=== PATIENT | male | born 1950 | race Caucasian/White ===

== ENCOUNTER 2018-12-30 16:03 | Inpatient (IN) ==
[2018-12-30] MEDS ORDERED: 0.9 % Sodium Chloride 1,000 ML IVC ONE (16:25)
--- NOTE | 2018-12-30 16:28 | Emergency Department Note ---
Disposition Clinical Impression: Urinary tract infection Qualifiers: Urinary tract infection type: site unspecified Hematuria presence: with hematuria Qualified Code(s): N39.0 - Urinary tract infection, site not specified; R31.9 - Hematuria, unspecified Disposition: Admitted As Inpatient Condition: Fair Referrals: NONE,PCP [Non-Partnered Physician] - Forms: ED Satisfaction Letter Time of Disposition: 20:11 General Adult HPI - General Chief complaint: ED Urogenital-Male Stated complaint: sob and blood in urine Time Seen by Provider: 12/30/18 16:14 Source: patient, family Mode of arrival: private vehicle Limitations: no limitations Nursing Notes Reviewed: Yes Vital Signs Reviewed: Yes - History of Present Illness HPI Narrative: Patient presents with a complaint of feeling chills and shaking on and off over the past 4 days. This is been associated with generalized weakness making it difficult for him to get up and ambulate. He also complains of myalgias. He is noticed blood in his urine for the past 4 days as well. Pt Subjective Complaint: Chills and weakness Onset (ago): hour(s) (4 days) Location: other (Generalized) Pain Severity: severe Pain Scale: 10 Associated symptoms: Reports: fever/chills, weakness, other (Myalgias) Treatments Prior to Arrival: none - Related Data Home Medications Medication Instructions Recorded Confirmed Albuterol Sulfate [Albuterol 2 puff IH Q4HR 12/30/18 12/30/18 Inhaler] Aspirin [Adult Aspirin] 81 mg PO DAILY 12/30/18 12/30/18 Atorvastatin Calcium [Lipitor] 20 mg PO DAILY 12/30/18 12/30/18 Atorvastatin [Lipitor] 80 mg PO HS 12/30/18 12/30/18 Diphenoxylate/Atropine [Lomotil 1 each PO QID 12/30/18 12/30/18 2.5 mg/0.025 mg] Famotidine [Heartburn Prevention] 20 mg PO BID 12/30/18 12/30/18 Morphine Sulfate [Arymo ER] 15 mg PO BID 12/30/18 12/30/18 Morphine Sulfate [Arymo ER] 15 mg PO BID 12/30/18 12/30/18 OxyCODONE/APAP 10/325 [Percocet 1 each PO 5XD 12/30/18 12/30/18 10/325 MG] Oxycodone HCl/Acetaminophen 1 each PO 5XD 12/30/18 12/30/18 [Percocet 10-325 mg Tablet] Pregabalin [Lyrica] 75 mg PO TID 12/30/18 12/30/18 hydrOXYzine HCl [Hydroxyzine HCl] 50 mg PO TID 12/30/18 12/30/18 hydroCHLOROthiazide 12.5 mg PO DAILY 12/30/18 12/30/18 [Hydrochlorothiazide] Allergies Allergy/AdvReac Type Severity Reaction Status Date / Time No Known Allergies Allergy Verified 04/02/15 12:10 All systems ED: reviewed and negative except as stated. Constitutional: Reports: fever, chills, weakness ENT ED: Denies: ear pain, throat pain, congestion Cardiovascular: Denies: chest pain, palpitations Respiratory: Denies: cough, dyspnea, wheezes Gastrointestinal: Reports: nausea. Denies: abdominal pain, diarrhea Musculoskeletal: Denies: back pain Integumentary: Denies: rash Neurological: Reports: weakness (Generalized). Denies: headache Past Medical History - Past Medical History Attestation: Yes The following information was validated with the patient. Source: patient, old records reviewed, nursing notes reviewed Medical history: Reports: COPD, coronary artery disease, GERD, hyperlipidemia, hypertension Surgical history: Reports: angioplasty/stent Psychiatric history: Reports: anxiety, depression - Social History Smoking Status: Current every day smoker Smokeless Tobacco Status: No Alcohol use: Reports: none Drug use: Reports: none Physical Exam - General Limitations: no limitations General appearance: alert, in no apparent distress - Head Head exam: atraumatic, normocephalic, normal inspection - Eye Eye exam: Present: normal appearance, PERRL, EOMI. Absent: scleral icterus, conjunctival injection - ENT ENT exam: normal exam, normal oropharynx, mucous membranes moist, normal external ear exam - Neck Neck exam: Present: normal inspection, full ROM, trachea midline. Absent: tenderness, meningismus - Chest Chest inspection: Present: normal inspection, symmetric chest wall rise. Absent: tenderness - Respiratory Respiratory exam: Present: normal lung sounds bilaterally. Absent: respiratory distress, wheezes - Cardiovascular Cardiovascular exam: Present: regular rate, normal rhythm, normal heart sounds - Abdominal Exam Abdominal exam: Present: soft, Non-Tender, normal bowel sounds - Extremities Exam Extremities exam: Present: normal inspection. Absent: pedal edema - Neurological Exam Neurological exam: Present: alert, oriented X3 - Psychiatric Psychiatric exam: Present: normal affect, normal mood - Skin Skin exam: Present: warm, dry. Absent: rash Course Course Narrative: Patient presents with what sounds like fevers and chills over the past few days associated with weakness and myalgias. He has had some hematuria and some urinary symptoms. I am concerned for urinary tract infection. Going. Disposition will be based on diagnostic results and reevaluation. - Reevaluation(s) Reevaluation #1: Urinalysis positive for infection. However the patient is afebrile. Normal white count. No elevation of lactic acid. No signs of sepsis. He did have a small elevation of troponin which is barely above the normal limit. However his story is that of urinary tract infection. I will repeat a troponin at the 3 hour elizabeth. In the meantime we will give him Rocephin IV. Disposition will be based on the repeat troponin and reevaluation. Time: 17:28 Reevaluation #2: Review troponin was negative. Patient will be admitted to the hospitalist service Time: 20:08 - Consultations Consultation #1: Dr. Kapadia, hospitalist - I discussed case with the hospice. He accepted the patient for admission. Pending the repeat troponin. Time: 18:20 Vital Signs Temperature 99.4 F 12/30/18 16:05 Pulse Rate 96 12/30/18 16:05 Respiratory Rate 18 12/30/18 16:05 Blood Pressure 169/63 12/30/18 16:05 O2 Sat by Pulse Oximetry 97 12/30/18 16:05 Temperature 99.4 F 12/30/18 16:05 Pulse Rate 94 12/30/18 20:03 Respiratory Rate 18 12/30/18 20:03 Blood Pressure 129/47 12/30/18 20:03 O2 Sat by Pulse Oximetry 97 12/30/18 20:03 Oxygen Delivery Oxygen Delivery Room Air Medical Decision Making - Medical Records Medical records reviewed: Yes I reviewed the patient's medical records. - Lab Data Lab results reviewed: Yes I reviewed the patient's lab results. Result diagrams: 12/30/18 16:38 12/30/18 16:38 Lab Results 12/30/18 12/30/18 12/30/18 Range/Units 16:25 16:38 16:38 WBC 6.6 (4.3-11.1) K/mcL RBC 4.01 L (4.19-5.50) M/mcL Hgb 12.5 L (12.9-16.9) g/dL Hct 35.0 L (37.5-50.1) % MCV 87.3 (83.0-100.0) fL MCH 31.2 (28.0-33.3) pg MCHC 35.7 H (31.6-35.5) g/dL RDW 12.6 (11.5-14.5) % Plt Count 72 L (140-400) K/mcL MPV 11.7 (9.4-12.4) fL Immature Gran % 0.3 (0-4) % Seg Neutrophils % 79.5 % Lymphocytes % 8.1 % Monocytes % 11.9 % Eosinophils % 0.0 % Basophils % 0.2 % Neutrophils # 5.2 (1.6-8.9) K/mcL Lymphocytes # 0.5 L (0.6-4.6) K/mcL Monocytes # 0.8 (0.0-1.3) K/mcL Eosinophils # 0.0 (0.0-0.6) K/mcL Basophils # 0.0 (0.0-0.2) K/mcL Sodium 130 L (136-145) mEq/L Potassium 3.6 (3.5-5.1) mEq/L Chloride 99 (98-107) mEq/L Carbon Dioxide 21 L (23-29) mEq/L BUN 33 H (8-23) mg/dL Creatinine 1.41 H (0.70-1.30) mg/dL Est GFR ( Amer) > 60 (> 60) Est GFR (Non-Af Amer) 50 L (> 60) BUN/Creatinine Ratio 23 (6-26) Glucose 204 H (70-105) mg/dL Calculated Osmolality 283 (280-300) Lactic Acid (0.5-2.2) mmol/L Calcium 8.2 L (8.6-10.3) mg/dL Total Bilirubin 1.0 (0.3-1.0) mg/dL Direct Bilirubin 0.3 H (0.0-0.2) mg/dL Indirect Bilirubin 0.7 (0.0-1.2) mg/dL AST 37 (13-39) Units/L ALT 28 (7-52) Units/L Alkaline Phosphatase 50 (34-104) Units/L Troponin I (< 0.04) ng/mL Serum Total Protein 7.1 (6.4-8.9) g/dL Albumin 3.6 (3.5-5.7) g/dL Globulin 3.5 (2.4-3.5) g/dL Albumin/Globulin Ratio 1.0 L (1.1-2.2) Urine Color Yellow (Yellow) Urine Clarity Cloudy A (Clear) Urine pH 5.5 (5.0-8.0) pH Units Ur Specific [place] 1.020 (1.010-1.025) Urine Protein >=300 H (Neg-Trace) mg/dL Urine Glucose (UA) Normal (Normal) mg/dL Urine Ketones Negative (Negative) mg/dL Urine Blood Large H (Negative) Urine Nitrite Negative (Negative) Urine Bilirubin Small H (Negative) Urine Urobilinogen Normal (Normal) mg/dL Ur Leukocyte Esterase Moderate H (Negative) Urine Microscopic RBC 15-30 H (0-3) per hpf Urine Microscopic WBC TNTC H (0-3) per hpf Ur Squamous Epith Cells Few (None-Few) per lpf Urine Bacteria Many H (None-Few) per hpf Urine Mucus Moderate H (Few) Ur Culture Indicated? YES A (NO) 12/30/18 12/30/18 12/30/18 Range/Units 16:38 16:38 19:22 WBC (4.3-11.1) K/mcL RBC (4.19-5.50) M/mcL Hgb (12.9-16.9) g/dL Hct (37.5-50.1) % MCV (83.0-100.0) fL MCH (28.0-33.3) pg MCHC (31.6-35.5) g/dL RDW (11.5-14.5) % Plt Count (140-400) K/mcL MPV (9.4-12.4) fL Immature Gran % (0-4) % Seg Neutrophils % % Lymphocytes % % Monocytes % % Eosinophils % % Basophils % % Neutrophils # (1.6-8.9) K/mcL Lymphocytes # (0.6-4.6) K/mcL Monocytes # (0.0-1.3) K/mcL Eosinophils # (0.0-0.6) K/mcL Basophils # (0.0-0.2) K/mcL Sodium (136-145) mEq/L Potassium (3.5-5.1) mEq/L Chloride (98-107) mEq/L Carbon Dioxide (23-29) mEq/L BUN (8-23) mg/dL Creatinine (0.70-1.30) mg/dL Est GFR ( Amer) (> 60) Est GFR (Non-Af Amer) (> 60) BUN/Creatinine Ratio (6-26) Glucose (70-105) mg/dL Calculated Osmolality (280-300) Lactic Acid 1.4 (0.5-2.2) mmol/L Calcium (8.6-10.3) mg/dL Total Bilirubin (0.3-1.0) mg/dL Direct Bilirubin (0.0-0.2) mg/dL Indirect Bilirubin (0.0-1.2) mg/dL AST (13-39) Units/L ALT (7-52) Units/L Alkaline Phosphatase (34-104) Units/L Troponin I 0.04 H* 0.03 (< 0.04) ng/mL Serum Total Protein (6.4-8.9) g/dL Albumin (3.5-5.7) g/dL Globulin (2.4-3.5) g/dL Albumin/Globulin Ratio (1.1-2.2) Urine Color (Yellow) Urine Clarity (Clear) Urine pH (5.0-8.0) pH Units Ur Specific [place] (1.010-1.025) Urine Protein (Neg-Trace) mg/dL Urine Glucose (UA) (Normal) mg/dL Urine Ketones (Negative) mg/dL Urine Blood (Negative) Urine Nitrite (Negative) Urine Bilirubin (Negative) Urine Urobilinogen (Normal) mg/dL Ur Leukocyte Esterase (Negative) Urine Microscopic RBC (0-3) per hpf Urine Microscopic WBC (0-3) per hpf Ur Squamous Epith Cells (None-Few) per lpf Urine Bacteria (None-Few) per hpf Urine Mucus (Few) Ur Culture Indicated? (NO) - Radiology Data Radiology results reviewed: Yes I reviewed the patient's radiology results. - EKG Data EKG #1 EKG attestation: Yes I reviewed and interpreted this EKG. EKG results narrative: Twelve-lead EKG performed at 1640 2 PM. Ordered, reviewed and interpreted by ED physician shows sinus rhythm at a rate of 100. There is an intraventricular conduction defect it seems consistent with a left bundle branch block. No obv ious acute ischemic changes. Intervals are otherwise within normal limits.
[2018-12-30 16:43] LABS: Bilirubin,Urine Small (Negative); Blood,Urine Large (Negative); Clarity,Urine Cloudy (Clear); Color,Urine Yellow (Yellow); Glucose,Urine (UA) Normal (Normal); Ketones,Urine Negative (Negative); Leukocyte Esterase,Urine Moderate (Negative); Nitrite,Urine Negative (Negative); PH,Urine 5.5 pH Units (5.0-8.0); Protein,Urine >=300 mg/dL (Neg-Trace); Urobilinogen,Urine Normal (Normal)
[2018-12-30 16:46] LABS: Basophils % 0.2 %; Hemoglobin 12.5 g/dL (12.9-16.9); Immature Granulocytes % 0.3 % (0-4); Lymphocytes # 0.5 K/mcL (0.6-4.6); Lymphocytes % 8.1 %; Mean Corpuscular HGB Conc 35.7 g/dL (31.6-35.5); Mean Corpuscular Hemoglobin 31.2 pg (28.0-33.3); Mean Corpuscular Volume 87.3 fL (83.0-100.0); Mean Platelet Volume 11.7 fL (9.4-12.4); Monocytes # 0.8 K/mcL (0.0-1.3); Monocytes % 11.9 %; Neutrophils # 5.2 K/mcL (1.6-8.9); Red Blood Count 4.01 M/mcL (4.19-5.50); Red Cell Distribution Width 12.6 % (11.5-14.5); Segmented Neutrophils % 79.5 %; White Blood Count 6.6 K/mcL (4.3-11.1)
[2018-12-30 16:50] LABS: Bacteria,Urine Many per hpf (None-Few); Mucus,Urine Moderate (Few); RBC,Urine 15-30 per hpf (0-3); Squamous Epithelial Cell,Urine Few per lpf (None-Few); WBC,Urine TNTC per hpf (0-3)
[2018-12-30 16:52] LABS: Platelet Count 72 K/mcL (140-400)
[2018-12-30 17:09] LABS: Alanine Aminotransferase 28 Units/L (7-52); Albumin 3.6 g/dL (3.5-5.7); Alkaline Phosphatase 50 Units/L (34-104); Aspartate Amino Transferase 37 Units/L (13-39); BUN/Creatinine Ratio 23 (6-26); Bilirubin,Direct 0.3 mg/dL (0.0-0.2); Bilirubin,Indirect 0.7 mg/dL (0.0-1.2); Blood Urea Nitrogen 33 mg/dL (8-23); Calcium 8.2 mg/dL (8.6-10.3); Carbon Dioxide 21 mEq/L (23-29); Chloride 99 mEq/L (98-107); Globulin 3.5 g/dL (2.4-3.5); Glucose 204 mg/dL (70-105); Osmolality,Calculated 283 (280-300); Potassium 3.6 mEq/L (3.5-5.1); Sodium 130 mEq/L (136-145); Total Protein 7.1 g/dL (6.4-8.9); eGFR For African Americans > 60 (> 60); eGFR For Non-African Americans 50 (> 60)
[2018-12-30] MEDS ORDERED: Naloxone 0.4 MG/ML INJ IVP PRN (20:52)
[2018-12-30] MEDS: Morphine Sulfate ER (12 HR) 15 MG TABLET.ER PO SCH (21:21)
[2018-12-30] MEDS: 0.9 % Sodium Chloride 1,000 ML IVC SCH (21:22)
[2018-12-30] MEDS: Pregabalin 75 MG CAPSULE PO SCH (21:22)
[2018-12-30] MEDS: Famotidine 20 MG TABLET PO SCH (21:23)
[2018-12-30] MEDS ORDERED: Acetaminophen 325 MG TABLET PO PRN (23:02)
[2018-12-30] MEDS ORDERED: levoFLOXacin 750 MG/150 ML 750 MG/150 ML BAG IVPB ONE (23:03)
[2018-12-31] MEDS: Famotidine 20 MG TABLET PO SCH ×4 (05:59→16:20)
[2018-12-31] MEDS: *HR* OxyCODONE/APAP 10/325 TABLET PO PRN ×2 (06:47→14:39)
[2018-12-31] MEDS ORDERED: hydroCHLOROthiazide 25 MG TABLET PO SCH (09:00)
[2018-12-31] MEDS ORDERED: cefTRIAXone 1,000 MG in 0.9 % Sodium Chloride Mini Bag 100 ML IVPB SCH (09:00)
--- NOTE | 2018-12-31 09:15 | Internal Med History&Physical ---
Date of Encounter: 12/31/18 Time of Encounter: 08:45 Assessment and Plan (1) Urinary tract infection Current visit: Yes Status: Acute He was started on Rocephin in emergency room. This will be continued with IV Levaquin added pending urine culture report. Lactobacillus will be given. Qualifiers: Urinary tract infection type: site unspecified Hematuria presence: with hematuria Qualified Code(s): N39.0 - Urinary tract infection, site not specified; R31.9 - Hematuria, unspecified (2) Acute renal insufficiency Current visit: Yes Status: Acute IV fluids will be given and HCTZ will be held. (3) Anemia Current visit: Yes Status: Acute Anemia testing will be done. Qualifiers: Anemia type: unspecified type Qualified Code(s): D64.9 - Anemia, unspecified (4) ASHD (arteriosclerotic heart disease) Current visit: Yes Status: Acute Continue aspirin 81 mg daily. (5) Anxiety Current visit: Yes Status: Acute Continue hydroxyzine (6) RLS (restless legs syndrome) Current visit: Yes Status: Acute Iron profile will be checked. Continue home medications. (7) Thrombocytopenia Current visit: Yes Status: Acute Present on labs from August 2014. Continue to monitor. Internal Medicine - H&P: HPI Chief complaint: UTI, acute renal failure Admitted From: Emergency Dept Plans for Post Hospital Care: Home History of present illness: Mr. Rashid is a 68 year old male who came to emergency room complaining of 4 day history of fevers chills and small volume polyuria. He was found to have acute renal insufficiency and evidence of UTI. He was admitted to [facility] floor for ongoing care needs. He denies previous UTIs. He denies known chronic kidney disease. He denies any other disorders of his kidneys bladder or prostate. Past Med Surg Social Fam HX - Past Medical History Medical history: COPD, coronary artery disease, GERD, hyperlipidemia, hypertension Additional medical history: cervical stenosis. ddd. chronic back pain. chronic neck pain Psychiatric history: anxiety, depression - Past Surgical History Surgical History: angioplasty/stent Additional surgical history: 05/22/[address] Post - Social History Smoking Status: Current every day smoker Packs per day: 2 Smokeless Tobacco Status: No Alcohol use: none Drug use: none Internal Medicine - H&P: Meds Albuterol Sulfate [Albuterol Inhaler] 2 puff IH Q4HR 12/30/18 [History] Aspirin [Adult Aspirin] 81 mg PO DAILY 12/30/18 [History] Atorvastatin Calcium [Lipitor] 20 mg PO DAILY 12/30/18 [History] Atorvastatin [Lipitor] 80 mg PO HS 12/30/18 [History] Diphenoxylate/Atropine [Lomotil 2.5 mg/0.025 mg] 1 each PO QID 12/30/18 [History ] Famotidine [Heartburn Prevention] 20 mg PO BID 12/30/18 [History] Morphine Sulfate [Arymo ER] 15 mg PO BID 12/30/18 [History] Morphine Sulfate [Arymo ER] 15 mg PO BID 12/30/18 [History] OxyCODONE/APAP 10/325 [Percocet 10/325 MG] 1 each PO 5XD 12/30/18 [History] Oxycodone HCl/Acetaminophen [Percocet 10-325 mg Tablet] 1 each PO 5XD 12/30/18 [History] Pregabalin [Lyrica] 75 mg PO TID 12/30/18 [History] hydrOXYzine HCl [Hydroxyzine HCl] 50 mg PO TID 12/30/18 [History] hydroCHLOROthiazide [Hydrochlorothiazide] 12.5 mg PO DAILY 12/30/18 [History] Allergy/AdvReac Type Severity Reaction Status Date / Time No Known Allergies Allergy Verified 04/02/15 12:10 All Systems PM: A 10-system review of systems was performed and is negative for pertinent findings except as documented above in the HPI. Review of systems: Gen.: He states his weight has been stable for several months Cardiovascular: He has ASHD with total of 3 stents placed. His last heart cath was over 5 years ago. He denies hypertension [place] heart failure DVT or pulmonary embolus Respiratory: He has smoked since age 9 up to 2 packs per day. He has not had PFTs and does not use home oxygen GI: Denies disorders of his liver gallbladder or exocrine pancreas : He denies hematuria dysuria or kidney stones Neurologic: He denies large distribution strokes or seizures. Endocrine: He has hyperlipidemia but denies diabetes or thyroid disease Hematology/oncology: Denies blood disorders cancers or anemia Psychiatric: He has anxiety but denies depression or other mental health diagnoses. [place] skeletal: He has DJD and chronic low back pain. He has a diagnoses of RLS. He denies gout or other bone joint or muscle disorders. - Constitutional Vitals: Temp Pulse Resp BP Pulse Ox 101.7 F H 104 20 138/72 97 12/31/18 07:46 12/31/18 06:58 12/31/18 06:58 12/31/18 06:58 12/31/18 06:58 Exam: Gen.: He is a well-developed well-nourished male who is diaphoretic and appears in mild discomfort HEENT: Head is atraumatic and normocephalic. Eyes: He has no left eye vision. EOMI. Mouth: Mucosa is moist. Neck: Supple and nontender. There is no thyromegaly or adenopathy noted. Heart: Regular without murmurs gallops or ectopics Lungs: No wheezes or crackles are heard. Abdomen: Soft and nontender. No masses or guarding are noted. Extremities: There is no cyanosis edema or clubbing noted. Dorsalis pedis and posterior tibial pulses are trace to 1+ palpable bilaterally. Neurologic: Mental status: He is talkative and a good historian. Cranial nerves: Smile is symmetric. Forehead wrinkles bilaterally. Tongue protrudes midline. EOMI. Motor: There is no pronator drift. Cerebellar: Finger to nose is intact bilaterally. Skin: Warm and dry Internal Med - H&P Results - Labs CBC & Chem 7: 12/30/18 16:38 12/30/18 16:38 Labs: Short CBC 12/30/18 Range/Units 16:38 WBC 6.6 (4.3-11.1) K/mcL Hgb 12.5 L (12.9-16.9) g/dL Hct 35.0 L (37.5-50.1) % Plt Count 72 L (140-400) K/mcL Neutrophils # 5.2 (1.6-8.9) K/mcL BMP 12/30/18 16:38 Sodium 130 L Potassium 3.6 Chloride 99 Carbon Dioxide 21 L BUN 33 H Creatinine 1.41 H Glucose 204 H Calcium 8.2 L Cardiac Enzymes 12/30/18 12/30/18 Range/Units 16:38 19:22 Troponin I 0.04 H* 0.03 (< 0.04) ng/mL Liver Function 12/30/18 Range/Units 16:38 Total Bilirubin 1.0 (0.3-1.0) mg/dL Direct Bilirubin 0.3 H (0.0-0.2) mg/dL AST 37 (13-39) Units/L ALT 28 (7-52) Units/L Alkaline Phosphatase 50 (34-104) Units/L Albumin 3.6 (3.5-5.7) g/dL Urine 12/30/18 Range/Units 16:25 Urine Color Yellow (Yellow) Urine Clarity Cloudy A (Clear) Urine pH 5.5 (5.0-8.0) pH Units Ur Specific [place] 1.020 (1.010-1.025) Urine Protein >=300 H (Neg-Trace) mg/dL Urine Glucose (UA) Normal (Normal) mg/dL - Impressions ITS Impressions Chest X-Ray 12/30/18 16:24 IMPRESSION: Right perihilar prominence for which infiltrate cannot be excluded. Follow-up to resolution is recommended. D/ / Stephany Hurtado MD / Stephany Hurtado MD Interpreting Provider: Stephany Hurtado MD
[2018-12-31 09:32] LABS: Acinetobacter baumannii by PCR Not Detected (Not Detect); Candida albicans by PCR Not Detected (Not Detect); Candida glabrata by PCR Not Detected (Not Detect); Candida krusei by PCR Not Detected (Not Detect); Candida parapsilosis by PCR Not Detected (Not Detect); Candida tropicalis by PCR Not Detected (Not Detect); Enterobacter cloacae Cmplx PCR Not Detected (Not Detect); Enterobacteriaceae by PCR DETECTED (Not Detect); Enterococcus by PCR Not Detected (Not Detect); Escherichia coli by PCR DETECTED (Not Detect); Klebsiella oxytoca by PCR Not Detected (Not Detect); Klebsiella pneumoniae by PCR Not Detected (Not Detect); Proteus by PCR Not Detected (Not Detect); Pseudomonas aeruginosa by PCR Not Detected (Not Detect); Serratia marcescens by PCR Not Detected (Not Detect); Staphylococcus aureus by PCR Not Detected (Not Detect); Staphylococcus by PCR Not Detected (Not Detect); Streptococcus agalactiae(B)PCR Not Detected (Not Detect); Streptococcus by PCR Not Detected (Not Detect); Streptococcus pneumoniae PCR Not Detected (Not Detect); Streptococcus pyogenes (A) PCR Not Detected (Not Detect); blaKPC Carbapenem-Resist Gene Not Detected (Not Detect)
[2018-12-31] MEDS: 0.45 % Sodium Chloride w/KCl 20 MEQ/1,000 ML MLS IVC SCH ×2 (10:05→19:53)
[2018-12-31] MEDS: Morphine Sulfate ER (12 HR) 15 MG TABLET.ER PO SCH ×2 (10:10→19:52)
[2018-12-31] MEDS: Pregabalin 75 MG CAPSULE PO SCH ×3 (10:10→19:52)
[2018-12-31] MEDS: Aspirin Enteric Coated 81 MG Tablet PO SCH (10:10)
[2018-12-31] MEDS: cefTRIAXone 1,000 MG in Water for inj. (sterile) 10 ML IVPB SCH (18:00)
[2018-12-31] MEDS ORDERED: Acetaminophen 325 MG TABLET PO PRN (18:46)
[2018-12-31] MEDS: 0.9 % Sodium Chloride 1,000 ML IVC SCH (19:33)
[2018-12-31] MEDS: Lactobacillus 1 EACH CAP.SPRINK PO SCH (19:53)
[2018-12-31 21:02] LABS: Ferritin 391 ng/mL (20-250); Iron < 10 mcg/dL (65-175); Transferrin 164 mg/dL (203-362)
[2018-12-31 21:09] LABS: Folate 14.6 ng/mL (3.0-16.0)
[2018-12-31] MEDS: levoFLOXacin 750 MG/150 ML 750 MG/150 ML BAG IVPB SCH (22:08)
[2019-01-01] MEDS: *HR* OxyCODONE/APAP 10/325 TABLET PO PRN ×2 (03:03→14:56)
[2019-01-01] MEDS: 0.45 % Sodium Chloride w/KCl 20 MEQ/1,000 ML MLS IVC SCH ×2 (06:02→10:17)
[2019-01-01] MEDS: Famotidine 20 MG TABLET PO SCH ×2 (06:02→16:32)
[2019-01-01 06:17] LABS: Hematocrit 30.1 % (37.5-50.1); Hemoglobin 10.6 g/dL (12.9-16.9); Mean Corpuscular HGB Conc 35.2 g/dL (31.6-35.5); Mean Corpuscular Hemoglobin 31.1 pg (28.0-33.3); Mean Corpuscular Volume 88.3 fL (83.0-100.0); Red Blood Count 3.41 M/mcL (4.19-5.50); Red Cell Distribution Width 12.7 % (11.5-14.5)
[2019-01-01 06:25] LABS: Platelet Count 57 K/mcL (140-400)
[2019-01-01 06:45] LABS: BUN/Creatinine Ratio 19 (6-26); Blood Urea Nitrogen 21 mg/dL (8-23); Calcium 7.4 mg/dL (8.6-10.3); Carbon Dioxide 22 mEq/L (23-29); Chloride 105 mEq/L (98-107); Glucose 133 mg/dL (70-105); Osmolality,Calculated 279 (280-300); Potassium 3.9 mEq/L (3.5-5.1); Sodium 132 mEq/L (136-145); eGFR For African Americans > 60 (> 60); eGFR For Non-African Americans > 60 (> 60)
[2019-01-01 06:54] LABS: Anisocytosis 1+ (Not Present); Dohle Bodies Present (Not Present); Large Platelets Present (Not Present); Lymphocytes # 0.7 K/mcL (0.6-4.6); Monocytes # 0.3 K/mcL (0.0-1.3); Platelet Estimate Decreased (Normal); Toxic Vacuolation Present (Not Present)
[2019-01-01] MEDS: Aspirin Enteric Coated 81 MG Tablet PO SCH (09:11)
[2019-01-01] MEDS: Pregabalin 75 MG CAPSULE PO SCH ×3 (09:11→22:16)
[2019-01-01] MEDS: Morphine Sulfate ER (12 HR) 15 MG TABLET.ER PO SCH ×2 (09:11→22:16)
[2019-01-01] MEDS: Lactobacillus 1 EACH CAP.SPRINK PO SCH ×2 (09:11→22:16)
--- NOTE | 2019-01-01 09:37 | Internal Med Progress Note ---
Date of Encounter: 01/01/19 Time of Encounter: 09:30 - Assessment and plan (1) Urinary tract infection Current Visit: Yes Status: Acute Assessment and plan: January 01. Escherichia coli present in urine and 2/2 blood cultures. Awaiting sensitivity report. Continue empiric Rocephin and Levaquin with lactobacillus. Qualifiers: Urinary tract infection type: site unspecified Hematuria presence: with hematuria Qualified Code(s): N39.0 - Urinary tract infection, site not specified; R31.9 - Hematuria, unspecified (2) Acute renal insufficiency Current Visit: Yes Status: Acute Assessment and plan: January 01. BUN and creatinine normal at 21 and 1.13 respectively with estimated GFR greater than 60. Continue present Rx. (3) Anemia Current Visit: Yes Status: Acute Assessment and plan: January 01. Anemia testing showed iron < 10, transferrin 164, ferritin 391, B12 241, and folate 14.6. He will receive iron dextran infusion and start oral ferrous sulfate with ascorbic acid. He will receive a B12 injection today and start oral B12 supplement. Qualifiers: Anemia type: unspecified type Qualified Code(s): D64.9 - Anemia, unspecified (4) ASHD (arteriosclerotic heart disease) Current Visit: Yes Status: Acute Assessment and plan: January 01. Continue aspirin 81 mg daily. (5) Anxiety Current Visit: Yes Status: Acute Assessment and plan: January 01. Continue hydroxyzine (6) RLS (restless legs syndrome) Current Visit: Yes Status: Acute Assessment and plan: January 01. Rx iron dextran and continue Lyrica (7) Thrombocytopenia Current Visit: Yes Status: Chronic Assessment and plan: January 01. Continue to monitor. - Subjective Interval history: January 01. He has no new complaints and states he feels significantly better. - Constitutional Vitals: Temp Pulse Resp BP Pulse Ox 98.9 F 93 16 137/69 99 01/01/19 09:09 01/01/19 09:09 01/01/19 03:56 01/01/19 09:09 01/01/19 09:09 Exam: He is sitting on the side of bed resting comfortably and appears in no acute distress. His affect is overall cheerful. I reviewed his medications and lab results. Internal Medicine: Result - Labs CBC & Chem 7: 01/01/19 06:03 06/02/19 06:03 Labs: Short CBC 01/01/19 Range/Units 06:03 WBC 3.0 L D (4.3-11.1) K/mcL Hgb 10.6 L D (12.9-16.9) g/dL Hct 30.1 L (37.5-50.1) % Plt Count 57 L (140-400) K/mcL Neutrophils # 2.0 (1.6-8.9) K/mcL BMP 01/01/19 06:03 Sodium 132 L Potassium 3.9 Chloride 105 Carbon Dioxide 22 L BUN 21 Creatinine 1.13 Glucose 133 H Calcium 7.4 L Consult Discharge Plan - Plan Referrals: Tracey Danielson, [employer]OCIATE [Primary Care Provider] - 1 week
[2019-01-01] MEDS ORDERED: Cyanocobalamin (B-12) 1,000 MCG/ML VIAL IM ONE (09:40)
[2019-01-01] MEDS ORDERED: SODIUM CHLORIDE 0.9% IVPB ONE (11:00)
[2019-01-01] MEDS ORDERED: IRON DEXTRAN COMPLEX IVPB ONE (11:00)
[2019-01-01] MEDS: cefTRIAXone 1,000 MG in Water for inj. (sterile) 10 ML IVPB SCH (17:07)
[2019-01-01] MEDS: levoFLOXacin 750 MG/150 ML 750 MG/150 ML BAG IVPB SCH (22:16)
[2019-01-02] MEDS: 0.45 % Sodium Chloride w/KCl 20 MEQ/1,000 ML MLS IVC SCH (03:23)
[2019-01-02] MEDS ORDERED: Ascorbic Acid 500 MG TABLET PO SCH (06:30)
[2019-01-02] MEDS: *HR* OxyCODONE/APAP 10/325 TABLET PO PRN (07:09)
[2019-01-02 07:16] VITALS: BP 122/71
[2019-01-02 08:10] LABS: Basophils % 0.3 %; Hematocrit 32.9 % (37.5-50.1); Hemoglobin 11.4 g/dL (12.9-16.9); Immature Granulocytes % 0.7 % (0-4); Lymphocytes # 0.8 K/mcL (0.6-4.6); Lymphocytes % 26.4 %; Mean Corpuscular HGB Conc 34.7 g/dL (31.6-35.5); Mean Corpuscular Hemoglobin 30.7 pg (28.0-33.3); Mean Corpuscular Volume 88.7 fL (83.0-100.0); Mean Platelet Volume 12.6 fL (9.4-12.4); Monocytes # 0.4 K/mcL (0.0-1.3); Monocytes % 13.5 %; Neutrophils # 1.8 K/mcL (1.6-8.9); Red Blood Count 3.71 M/mcL (4.19-5.50); Red Cell Distribution Width 13.2 % (11.5-14.5); Segmented Neutrophils % 59.1 %
[2019-01-02] MEDS: Morphine Sulfate ER (12 HR) 15 MG TABLET.ER PO SCH (08:19)
[2019-01-02] MEDS: Famotidine 20 MG TABLET PO SCH (08:19)
[2019-01-02] MEDS: Pregabalin 75 MG CAPSULE PO SCH (08:19)
[2019-01-02] MEDS: Lactobacillus 1 EACH CAP.SPRINK PO SCH (08:19)
[2019-01-02] MEDS: Aspirin Enteric Coated 81 MG Tablet PO SCH (08:19)
[2019-01-02 08:23] LABS: Platelet Count 69 K/mcL (140-400)
--- NOTE | 2019-01-02 08:40 | Electrocardiograph Report ---
[place] [id number] Test Date: 2018-12-30 Pat Name: Santiago Rashid Department: EDP-16 Room: [facility] Gender: M Net Sorter: : 1950 Requested By: Moi Hawkins Order Number: [id number] Reading MD: Santiago Montes De Oca Measurements Intervals [place] Rate: 100 P: 83 NM: 144 QRS: 63 QRSD: 134 T: 117 QT: 384 QTc: 496 Interpretive Statements Sinus tachycardia lbbb Electronically Signed On 01-02-2019 8:38:52 EDT by Santiago Montes De Oca
[2019-01-02] MEDS ORDERED: Cyanocobalamin (B-12) 1,000 MCG TABLET PO SCH (09:00)
--- NOTE | 2019-01-02 10:00 | Discharge Summary ---
Orders not resulted at time of discharge: Pending orders 12/30/18 16:38 Culture,Blood [BC] Stat 01/02/19 06:46 Basic Metabolic Panel AM 0400 Date of Encounter: 01/02/19 Time of Encounter: 09:45 - Discharge Diagnosis (1) Urinary tract infection Priority: Primary Status: Acute Qualifiers: Urinary tract infection type: site unspecified Hematuria presence: with hematuria Qualified Code(s): N39.0 - Urinary tract infection, site not specified; R31.9 - Hematuria, unspecified (2) Acute renal insufficiency Priority: Secondary Status: Resolved (3) Anemia Priority: Secondary Status: Acute Qualifiers: Anemia type: unspecified type Qualified Code(s): D64.9 - Anemia, unspecified (4) ASHD (arteriosclerotic heart disease) Priority: Secondary Status: Chronic (5) Anxiety Priority: Secondary Status: Chronic (6) RLS (restless legs syndrome) Priority: Secondary Status: Chronic (7) Thrombocytopenia Priority: Secondary Status: Chronic Hospital course: Mr. Rashid is a 68 year old male who came to emergency room complaining of 4 day history of fevers chills and small volume polyuria. He was found to have acute renal insufficiency and evidence of UTI. He was admitted to [facility] floor for ongoing care needs. Initial orders were written by the emergency room physician. I saw him on December 31 and performed a history and physical. He was given Rocephin empirically in the emergency room. I started IV Levaquin for added spectrum coverage. Urine culture and 2/2 blood cultures returned showing Escherichia coli pansensitive to antibiotics tested. CBC decreased to 3.0 on January 01 and remained unchanged on January 02. There was resolution of left shift on differential. Fever curve improved and on January 02 he felt stable for discharge home. He will continue with antibiotic and probiotic for 7 additional days at discharge. Anemia testing showed iron <10, transferrin 164, transferrin 391, B12 241, and folate 14.6. He received iron dextran infusion and was started on oral ferrous sulfate with ascorbic acid. He also received a B12 injection IM and started on oral B12 supplement. These medications will be continued at discharge. IV fluids were given and azotemia resolved with BUN and creatinine improving to 21 and 1.13 respectively by January 01 with estimated GFR> 60. Hydrochlorothiazide was discontinued on admission his blood pressure remained satisfactory. He will remain off this at discharge. On January 02 he felt stable for discharge home. He will follow with his PCP Tracey Danielson CNP within 1 week. - Time Spent with Patient Total time spent providing and/or coordinating discharge services: - Discharge Medications Prescriptions: New Lactobacillus [Culturelle] 1 each PO BID #14 cap.sprink Ferrous Sulfate 325 mg PO 0630 #30 tablet cephALEXin [Keflex] 500 mg PO Q8H #21 capsule Cyanocobalamin (B-12) [Vitamin B12] 1,000 mcg PO DAILY #30 tablet Ascorbic Acid [Vitamin C] 500 mg PO 0630 #30 tablet Continued Oxycodone HCl/Acetaminophen [Percocet 10-325 mg Tablet] 1 each PO 5XD Pregabalin [Lyrica] 75 mg PO TID Morphine Sulfate [Arymo ER] 15 mg PO BID Famotidine [Heartburn Prevention] 20 mg PO BID Diphenoxylate/Atropine [Lomotil 2.5 mg/0.025 mg] 1 each PO QID Atorvastatin [Lipitor] 80 mg PO HS Aspirin [Adult Aspirin] 81 mg PO DAILY Albuterol Sulfate [Albuterol Inhaler] 2 puff IH Q4HR OxyCODONE/APAP 10/325 [Percocet 10/325 MG] 1 each PO 5XD Morphine Sulfate [Arymo ER] 15 mg PO BID hydrOXYzine HCl [Hydroxyzine HCl] 50 mg PO TID Atorvastatin Calcium [Lipitor] 20 mg PO DAILY Discontinued hydroCHLOROthiazide [Hydrochlorothiazide] 12.5 mg PO DAILY Home Medications: Albuterol Sulfate [Albuterol Inhaler] 2 puff IH Q4HR 12/30/18 [History] Aspirin [Adult Aspirin] 81 mg PO DAILY 12/30/18 [History] Atorvastatin Calcium [Lipitor] 20 mg PO DAILY 12/30/18 [History] Atorvastatin [Lipitor] 80 mg PO HS 12/30/18 [History] Diphenoxylate/Atropine [Lomotil 2.5 mg/0.025 mg] 1 each PO QID 12/30/18 [History] Famotidine [Heartburn Prevention] 20 mg PO BID 12/30/18 [History] Morphine Sulfate [Arymo ER] 15 mg PO BID 12/30/18 [History] Morphine Sulfate [Arymo ER] 15 mg PO BID 12/30/18 [History] OxyCODONE/APAP 10/325 [Percocet 10/325 MG] 1 each PO 5XD 12/30/18 [History] Oxycodone HCl/Acetaminophen [Percocet 10-325 mg Tablet] 1 each PO 5XD 12/30/18 [History] Pregabalin [Lyrica] 75 mg PO TID 12/30/18 [History] hydrOXYzine HCl [Hydroxyzine HCl] 50 mg PO TID 12/30/18 [History] Ascorbic Acid [Vitamin C] 500 mg PO 0630 #30 tablet 01/02/19 [Rx] Cyanocobalamin (B-12) [Vitamin B12] 1,000 mcg PO DAILY #30 tablet 01/02/19 [Rx] Ferrous Sulfate 325 mg PO 0630 #30 tablet 01/02/19 [Rx] Lactobacillus [Culturelle] 1 each PO BID #14 cap.sprink 01/02/19 [Rx] cephALEXin [Keflex] 500 mg PO Q8H #21 capsule 01/02/19 [Rx] Allergies/Adverse Reactions: Allergy/AdvReac Type Severity Reaction Status Date / Time No Known Allergies Allergy Verified 04/02/15 12:10 Date of admission: 12/31/18 14:15 Primary care physician: Tracey Danielson CNP - Constitutional Vitals: Temp Pulse Resp BP Pulse Ox 98.6 F 87 18 122/71 97 01/02/19 07:15 01/02/19 07:15 01/02/19 07:15 01/02/19 07:15 01/02/19 07:15 - Patient Status Disposition: Home, Self-Care Condition: Fair - Discharge Instructions Follow Up With: Tracey Danielson CNP [Primary Care Provider] - 1 week - Diet and Activity Activity: resume usual activities as tolerated Diet: advance to your usual diet
[2019-01-02 11:40] LABS: BUN/Creatinine Ratio 14 (6-26); Blood Urea Nitrogen 15 mg/dL (8-23); Carbon Dioxide 24 mEq/L (23-29); Chloride 105 mEq/L (98-107); Glucose 102 mg/dL (70-105); Osmolality,Calculated 281 (280-300); Potassium 4.1 mEq/L (3.5-5.1); Sodium 135 mEq/L (136-145); eGFR For African Americans > 60 (> 60); eGFR For Non-African Americans > 60 (> 60)
== END 2019-01-02 11:31 | disposition home or self-care (01) | DRG 690 ==
LOC: EMEROOPIK 16:03 → INPPIK 16:03
PROVIDERS: ADMIT Internal Medicine; ATTEND Internal Medicine